=== PATIENT | male | born 1940 | race African-American/Black ===

== ENCOUNTER 2017-07-10 18:05 | Emergency (ER) | payer SELFPAY ==
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
--- NOTE | 2017-07-10 21:01 | CT ---
Head CT Technique: Multiple axial sections through the brain were obtained. Intravenous contrast was not utilized. Comparison: No previous intracranial imaging. Findings: Ventricles along with basal cisterns and sulci over the convexities are within normal limits for the patient's age. Minimal basal ganglia calcification is seen. Atherosclerotic calcification is noted within the carotid siphon. No abnormal parenchymal densities are seen. No evidence of intracranial hemorrhage. No midline shift or mass effect is seen. Visualized sinuses are clear. No acute calvarial abnormality is seen. Impression: 1. Mild senescent change. Nothing acute is seen on noncontrast head CT study. Diagnostic code #2
--- NOTE | 2017-07-11 07:39 | CR ---
Chest: Two views of the chest were obtained. Comparison: No prior chest x-ray. Heart is slightly enlarged. Tortuous thoracic aorta or possibly aneurysmal aorta is noted. Mild increased lung markings are seen. Lungs otherwise are clear. Minimal degenerative spurring and minimal scoliosis is noted within the spine. Impression: 1. Slight increased lung markings. This is most likely chronic. 2. Other findings as noted above. Nothing acute is seen. Diagnostic code #2
== END 2017-07-10 21:32 | disposition home or self-care (01) ==
LOC: JD.ED 18:05
DX: S00.03XA Contusion of scalp, initial encounter (principal); M25.561 Pain in right knee; M25.562 Pain in left knee; Y04.8XXA Assault by other bodily force, initial encounter
CPT/HCPCS: 70450; 70450-26; 71046; 71046-26; 99283; 99285-25

== ENCOUNTER 2017-07-29 16:04 | Emergency (ER) | payer SELFPAY ==
[2017-07-29] MEDS ORDERED: amLODIPine 10 MG Tab PO STA (16:50)
[2017-07-29] MEDS ORDERED: Amoxicillin 500 MG Cap PO ONE (16:50)
--- NOTE | 2017-07-29 16:58 | EDM.PDOC ---
ED HPI GENERAL MEDICAL PROBLEM - General Chief Complaint: General Stated Complaint: TOOTHACHE Time Seen by Provider: 07/29/17 16:45 Source of Information: Reports: Patient, Other (friend who was called by nursing as width stripper service is not available) History Limitations: Reports: Language Barrier - History of Present Illness INITIAL COMMENTS - FREE TEXT/NARRATIVE: Dashawn is a 77yo male patient presents ambulatory with complaints of tooth ache to upper right molar. He points to his tooth and shows me where he is having pain. There is a language barrier, unfortunately width stripper is not available at this time. Nursing does gather some information from a friend who states he has had a tooth ache for many days; no other medical history, medications daily or allergies that friend is aware of. Treatments CUSTOMER ENGINEERING SPECIALIST: Reports: Other (see below) Other Treatments CUSTOMER ENGINEERING SPECIALIST: unknown - Related Data Allergies Allergy/AdvReac Type Severity Reaction Status Date / Time No Known Allergies Allergy Verified 07/29/17 16:22 Home Meds: Home Meds . [No Known Home Meds] 07/29/17 [History] Past Medical History - Past Health History Medical/Surgical History: Denies Medical/Surgical History Social & Family History - Family History Family Medical History: Noncontributory - Tobacco Use Smoking Status *Q: Unknown Ever Smoked - Caffeine Use Caffeine Use: Reports: None - Recreational Drug Use Recreational Drug Use: No ED ROS GENERAL - Review of Systems Review Of Systems: See Below Free Text/Narrative/Comment: Difficult to obtain as strong language barrier. In general he is having dental pain to rt upper molar. He also points to his head, I am questioning wether he has a headache but he is unable to understand. ED EXAM, GENERAL - Physical Exam Exam: See Below Exam Limited By: Language Barrier General Appearance: Alert, WD/WN, No Apparent Distress Eye Exam: Bilateral Eye: Conjunctival Injection, EOMI, PERRL Ears: Normal External Exam, Hearing Grossly Normal Nose: Normal Inspection Throat/Mouth: Normal Oropharynx, No Airway Compromise, Other (all teeth are in poor repair. Right upper molar is with severe gingival edema, root to lateral side is exposed. ) Head: Atraumatic, Normocephalic Neck: Normal Inspection Respiratory/Chest: No Respiratory Distress, Lungs Clear, Normal Breath Sounds Cardiovascular: Regular Rate, Rhythm, No Edema, No Murmur (Male) Exam: Deferred Rectal (Males) Exam: Deferred Extremities: Normal Inspection, No Pedal Edema Neurological: Alert, Oriented Skin Exam: Warm, Dry, Intact Course - Vital Signs Last Recorded V/S: Last Vital Signs Temp 98.0 F 07/29/17 16:22 Pulse 84 07/29/17 16:22 Resp 18 07/29/17 16:22 BP 180/129 H 07/29/17 16:56 Pulse Ox 97 07/29/17 16:22 - Orders/Labs/Meds Orders: Active Orders 24 hr Category Date Time Status Communication Order [RC] ROUTINE Care 07/29/17 16:52 Active Meds: Medications Discontinued Medications Generic Name Dose Route Start Last Admin Trade Name Ulysses PRN Reason Stop Dose Admin Amlodipine Besylate 10 mg 07/29/17 16:50 07/29/17 16:56 Norvasc PO 07/29/17 16:51 10 mg NOW STA Administration Amoxicillin 1,000 mg 07/29/17 16:50 07/29/17 16:54 Amoxil PO 07/29/17 16:51 1,000 mg ONETIME ONE Administration Ketorolac Tromethamine 30 mg 07/29/17 18:24 07/29/17 18:30 Toradol IM 07/29/17 18:25 30 mg ONETIME ONE Administration - Re-Assessments/Exams Free Text/Narrative Re-Assessment/Exam: 07/29/17 16:58 B/P is elevated; patient is unable to describe or tell me if this has been a problem for him before. Some of this elevation may be due to pain also. Amlodipine 10mg given PO. Amoxicillin 1,000mg PO given. Free Text/Narrative Re-Assessment/Exam: 07/29/17 18:25 b/p still elevated; will give pain medication and see if this improves. Departure - Departure Time of Disposition: 18:53 Disposition: Home, Self-Care 01 Condition: Good Clinical Impression: Elevated blood pressure reading, Pain due to dental caries - Discharge Information Instructions: Dental Abscess, Hypertension, [id number], Preventing Hypertension Referrals: Nuris Blunt OCEANOGRAPHY PROFESSOR [Primary Care Provider] - Forms: ED Department Discharge Additional Instructions: Rinse mouth with salt water 3 times daily Take antibiotic as instructed. See a dentist as soon as possible for further evaluation Check blood pressure once daily Low salt diet, push fluids- water is best Take blood pressure mediation once daily with lots of water. Follow up with Primary Care early next week for recheck of your blood pressure and to establish care-- this is essential. - My Orders Last 24 Hours: My Active Orders 07/29/17 16:52 Communication Order [RC] ROUTINE - Assessment/Plan Last 24 Hours: My Active Orders 07/29/17 16:52 Communication Order [RC] ROUTINE
[2017-07-29] MEDS ORDERED: Ketorolac 30 MG/ML SDV IM ONE (18:24)
== END 2017-07-29 19:00 | disposition home or self-care (01) ==
LOC: SUPCPDRO 16:04 → JD.ED 16:04
DX: K02.9 Dental caries, unspecified (principal); R03.0 Elevated blood-pressure reading, without diagnosis of hypertension
CPT/HCPCS: 96372; 99283; A9270; J1885

== ENCOUNTER 2018-04-05 11:45 | Emergency (ER) | payer MEDICARE ==
[2018-04-05] MEDS ORDERED: HYDROmorphone 1 MG/ML Syringe IVPUSH ONE (12:19)
[2018-04-05] MEDS ORDERED: Sodium Chloride 0.9% 10 ML Syringe FLUSH PRN (12:19)
[2018-04-05] MEDS ORDERED: Ondansetron 4 MG/2 ML SDV IVPUSH ONE (12:19)
--- NOTE | 2018-04-05 12:27 | EDM.PDOC ---
ED HPI GENERAL MEDICAL PROBLEM - General Chief Complaint: Abdominal Pain Stated Complaint: BACK PAIN Time Seen by Provider: 04/05/18 12:05 Source of Information: Reports: Patient, RN Notes Reviewed - History of Present Illness INITIAL COMMENTS - FREE TEXT/NARRATIVE: 78 year old male with abd pain that started about 2 days ago, became more severe last evening with onset of vomiting about 12 hours ago. Continued nausea , not actively vomiting on arrival to ED. No chest pain or difficulty breathing at this time. Hx Htn. The pain at times does radiate to his back. Most intense upper mid abd. Canadian is not fluent, difficult to get more details at time of initial eval. Abdomen Pain Score (Numeric/FACES): 7 - Related Data Allergies Allergy/AdvReac Type Severity Reaction Status Date / Time Iodinated Contrast- Oral and Allergy Rash Verified 04/05/18 14:39 IV Dye Home Meds: Home Meds Aspirin 81 mg PO BEDTIME #30 tab.chew 10/28/17 [Rx] Furosemide [Lasix] 40 mg PO ASDIRECTED #30 tablet 10/28/17 [Rx] Lisinopril [Prinivil] 20 mg PO DAILY #30 tablet 10/28/17 [Rx] Metoprolol Tartrate [Lopressor] 25 mg PO Q12H #30 tablet 10/28/17 [Rx] Spironolactone [Aldactone] 25 mg PO DAILY #30 tablet 10/28/17 [Rx] atorvaSTATin [Lipitor] 40 mg PO BEDTIME #30 tab 10/28/17 [Rx] Past Medical History - Past Health History Medical/Surgical History: Denies Medical/Surgical History HEENT History: Reports: Other (See Below) Other HEENT History: dental issues, teeth pulled. Cardiovascular History: Reports: Hypertension Musculoskeletal History: Reports: Arthritis, Osteoarthritis Social & Family History - Family History Family Medical History: Noncontributory - Tobacco Use Smoking Status *Q: Unknown Ever Smoked - Caffeine Use Caffeine Use: Reports: Coffee, Energy Drinks - Living Situation & Occupation Living situation: Reports: Occupation: Retired ED ROS GENERAL - Review of Systems Review Of Systems: See Below Constitutional: Denies: Fever HEENT: Denies: Throat Pain Respiratory: Denies: Shortness of Breath, Cough Cardiovascular: Denies: Chest Pain GI/Abdominal: Reports: Abdominal Pain, Decreased Appetite, Nausea, Vomiting. Denies: Diarrhea Musculoskeletal: Reports: Back Pain Neurological: Denies: Trouble Speaking, Difficulty Walking, Weakness ED EXAM, GI/ABD - Physical Exam Exam: See Below General Appearance: Alert, Mild Distress Eyes: Bilateral: Normal Appearance Throat/Mouth: Normal Inspection, Normal Oropharynx Head: Atraumatic Neck: Supple, Full Range of Motion Respiratory/Chest: No Respiratory Distress, Lungs Clear, Normal Breath Sounds Cardiovascular: Tachycardia GI/Abdominal Exam: Tender (mild to moderate tenderness upper mid abd, lower abd nontender) Back Exam: No: CVA Tenderness (L), CVA Tenderness (R) Neurological: Alert, No Motor/Sensory Deficits Skin Exam: Warm, Dry EKG INTERPRETATION EKG Date: 04/05/18 Rhythm: NSR [place]: Normal P-Wave: Present QRS: Normal ST-T: Other (borderline st elevation lateral leads) Course - Vital Signs Last Recorded V/S: Last Vital Signs Temp 97.5 F 04/05/18 12:03 Pulse 110 H 04/05/18 12:03 Resp 18 04/05/18 12:03 BP 124/94 H 04/05/18 12:03 Pulse Ox 94 L 04/05/18 12:03 - Orders/Labs/Meds Orders: Active Orders 24 hr Category Date Time Status EKG 12 Lead [EKG Documentation Completion] [RC] STAT Care 04/05/18 14:11 Active Peripheral IV Care [RC] . DIRECTED Care 04/05/18 12:21 Active Peripheral IV Insertion Adult [OM.PC] Stat Oth 04/05/18 12:19 Ordered Labs: Laboratory Tests 04/05/18 04/05/18 04/05/18 Range/Units 12:25 12:25 14:20 WBC 6.35 (4.23-9.07) K/mm3 RBC 6.88 H (4.63-6.08) M/mm3 Hgb 14.9 (13.7-17.5) gm/L Hct 44.8 (40.1-51.0) % MCV 65.1 L (79.0-92.2) fl MCH 21.7 L (25.7-32.2) pg MCHC 33.3 (32.2-35.5) g/dl RDW Std Deviation 37.8 (35.1-43.9) fL Plt Count 153 L (163-337) K/mm3 MPV TNP Neut % (Auto) 41.2 (34.0-67.9) % Lymph % (Auto) 34.2 (21.8-53.1) % [place] % (Auto) 19.4 H (5.3-12.2) % Eos % (Auto) 5.0 (0.8-7.0) Baso % (Auto) 0.2 (0.1-1.2) % Neut # (Auto) 2.62 (1.78-5.38) K/mm3 Lymph # (Auto) 2.17 (1.32-3.57) K/mm3 [place] # (Auto) 1.23 H (0.30-0.82) K/mm3 Eos # (Auto) 0.32 (0.04-0.54) K/mm3 Baso # (Auto) 0.01 (0.01-0.08) K/mm3 Manual Slide Review Abnormal smear Sodium 139 (136-145) mEq/L Potassium 4.6 (3.5-5.1) mEq/L Chloride 104 (98-107) mEq/L Carbon Dioxide 25 (21-32) mEq/L Anion Gap 14.6 (5-15) BUN 37 H (7-18) mg/dL Creatinine 1.2 (0.7-1.3) mg/dL Est Cr Clr Drug Dosing 49.61 mL/min Estimated GFR (MDRD) > 60 (>60) mL/min BUN/Creatinine Ratio 30.8 H (14-18) Glucose 104 (83-115) mg/dL Calcium 9.6 (8.5-10.1) mg/dL Total Bilirubin 0.4 (0.2-1.0) mg/dL AST 19 (15-37) U/L ALT 23 (16-63) U/L Alkaline Phosphatase 80 (46-116) U/L Troponin I < 0.017 (0.00-0.056) ng/mL Total Protein 8.0 (6.4-8.2) g/dl Albumin 3.4 (3.4-5.0) g/dl Globulin 4.6 gm/dL Albumin/Globulin Ratio 0.7 L (1-2) Lipase 135 (73-393) U/L Meds: Medications Discontinued Medications Generic Name Dose Route Start Last Admin Trade Name Freq PRN Reason Stop Dose Admin Diphenhydramine HCl 50 mg 04/05/18 14:36 04/05/18 14:45 Benadryl PO 04/05/18 14:37 50 mg ONETIME ONE Administration Hydromorphone HCl 1 mg 04/05/18 12:19 04/05/18 12:34 Dilaudid IVPUSH 04/05/18 12:20 1 mg ONETIME ONE Administration Sodium Chloride 1,000 mls @ 999 mls/hr 04/05/18 12:30 04/05/18 12:34 Normal Saline IV 999 mls/hr ONETIME PRABHAKAR Administration Sodium Chloride 100 mls @ 60 mls/hr 04/05/18 14:30 04/05/18 15:29 Normal Saline IV 60 mls/hr ASDIRECTED PRABHAKAR Administration Sodium Chloride 500 mls @ 999 mls/hr 04/05/18 14:36 04/05/18 14:45 Normal Saline IV 04/05/18 15:06 999 mls/hr .BOLUS ONE Administration Iopamidol 100 ml 04/05/18 14:18 04/05/18 15:27 Isovue-370 (76%) IVPUSH 04/05/18 14:19 100 ml ONETIME ONE Administration Methylprednisolone Sodium Succinate 125 mg 04/05/18 14:36 04/05/18 14:45 Solu-Medrol IVPUSH 04/05/18 14:37 125 mg ONETIME ONE Administration Ondansetron HCl 4 mg 04/05/18 12:19 04/05/18 12:34 Zofran IVPUSH 04/05/18 12:20 4 mg ONETIME ONE Administration Sodium Chloride 10 ml 04/05/18 12:19 04/05/18 12:38 Saline Flush FLUSH 10 ml ASDIRECTED PRN Administration Keep Vein Open Sodium Chloride 10 ml 04/05/18 14:18 04/05/18 15:29 Saline Flush FLUSH 04/05/18 14:19 10 ml ONETIME ONE Administration - Re-Assessments/Exams Free Text/Narrative Re-Assessment/Exam: 04/05/18 14:53. I was going to discharge patient a short while ago. He was feeling better. He had me talk to his son who informed me the patient has been having lower chest pain as well as the upper abd pain. Have ordered EKG which does not show acute changes but have also ordered Chest, abd angiogram with hx noted on problem list of thoracic aneurysm. awaiting results of that. 04/05/18 15:57. troponin has come back normal, CT shows aneurysm, unchanged, no acute abnormality, see Radiologist report for details. I have discussed this and other results with one of his son's per phone and with patient Departure - Departure Time of Disposition: 16:05 Disposition: Home, Self-Care 01 Preliminary Cause of *Q: Sepsis & Multi System Organ Failure Condition: Fair Clinical Impression: Atypical chest pain Abdominal pain Qualifiers: Abdominal location: epigastric Qualified Code(s): R10.13 - Epigastric pain - Discharge Information Instructions: Nonspecific Chest Pain, [id number] Referrals: PCP,None [Ordering Only Provider] - Forms: ED Department Discharge Additional Instructions: clear liquids until tomorrow, than careful bland diet as tolerated. tylenol if needed for any further pain. Continue current medications. Follow up clinic with your regular medical provider early next week, call for appointment. Return to ED if symptoms worsening in any way. - My Orders Last 24 Hours: My Active Orders 04/05/18 12:19 Peripheral IV Insertion Adult [OM.PC] Stat 04/05/18 12:21 Peripheral IV Care [RC] . DIRECTED 04/05/18 14:11 EKG 12 Lead [EKG Documentation Completion] [RC] STAT - Assessment/Plan Last 24 Hours: My Active Orders 04/05/18 12:19 Peripheral IV Insertion Adult [OM.PC] Stat 04/05/18 12:21 Peripheral IV Care [RC] . DIRECTED 04/05/18 14:11 EKG 12 Lead [EKG Documentation Completion] [RC] STAT
[2018-04-05] MEDS ORDERED: Sodium Chloride 0.9% 1,000 ML IV SCH (12:30)
--- NOTE | 2018-04-05 13:26 | CR ---
Abdomen: Supine and upright views of the abdomen were obtained. Comparison: No prior abdominal x-ray, previous CT abdomen of 10/25/17. Findings: Bowel gas pattern appears within normal limits. No free air is seen. Bony structures are within normal limits for the patient's age. No abnormal calcifications or discrete soft tissue abnormality is seen. Impression: 1. Nothing acute is seen on two-view abdominal x-ray. Diagnostic code #1
[2018-04-05] MEDS ORDERED: Sodium Chloride 0.9% 10 ML Syringe FLUSH ONE (14:18)
[2018-04-05] MEDS ORDERED: Iopamidol 755 Mg/ML 100 ML Bottle IVPUSH ONE (14:18)
[2018-04-05] MEDS ORDERED: Sodium Chloride 0.9% 100 ML IV SCH (14:30)
[2018-04-05] MEDS ORDERED: methylPREDNISolone Sodium Succinate 125 MG/2 ML SDV IVPUSH ONE (14:36)
[2018-04-05] MEDS ORDERED: Sodium Chloride 0.9% 500 ML IV ONE (14:36)
[2018-04-05] MEDS ORDERED: diphenhydrAMINE 50 MG Cap PO ONE (14:36)
--- NOTE | 2018-04-05 15:57 | CT ---
CT chest Technique: Multiple axial sections were obtained from above the lung apices inferiorly through the lung bases. Intravenous contrast was utilized. Comparison: Previous CT chest of 10/25/17. Findings: Ascending aorta measures approximately 4.4 cm in AP dimension which is stable from previous exam. Soft tissue thickening is seen of the ascending aorta wall which has slightly diminished in size from previous exam. No dissection is seen. No other aneurysm is noted. Heart is slightly enlarged. Mediastinum and hilar regions show no adenopathy or mass. Lung markings are slightly increased which appear stable from previous exam. Small nodule is noted within the right lung base which is stable. Additional nodule is noted within the right upper lung which is stable. No acute parenchymal change is appreciated. Bone window settings were reviewed which show no acute osseous abnormality. Slight degenerative change is noted within the spine. Impression: 1. Stable aneurysmal dilatation of the ascending aorta. 2. Mild cardiomegaly. 3. Other findings as noted above are stable. Nothing acute is appreciated. CT abdomen and pelvis Technique: Multiple axial sections were obtained from above the dome of the diaphragm inferiorly through the pubic symphysis. Intravenous contrast was utilized. No oral contrast has been given. Comparison: Previous CT abdomen and pelvis exam of 10/25/17. Findings: Liver contains no focal abnormality. Gallbladder contains no calcified gallstones. Spleen appears within normal limits. Adrenal glands show no nodule. Areas of scarring are seen within the left kidney. Kidneys show symmetric contrast enhancement. Very minimal cortical lesion is seen within the upper left kidney most likely due to minimal cyst. Slight increased density is noted within the proximal to mid left ureter believed to represent a a very small wall calcification or less likely nonobstructing stone. No significant proximal ureteral dilatation is seen. This finding is felt to be stable from previous exam. Ureters are otherwise unremarkable. Aorta shows no aneurysm. No dissection is seen. Proximal celiac arteries and superior mesenteric arteries are patent. Renal arteries are patent. Inferior mesenteric artery appears to be patent. No retroperitoneal adenopathy or mesenteric abnormalities are seen. No pelvic mass or adenopathy is seen. No bowel dilatation is seen. Appendix is seen and is normal in size. Bone window settings were reviewed which show mild degenerative change within the spine. Most prominent finding is vacuum phenomenon within the L4-L5 disc with epidural air indicating annular rupture of the L4-L5 disc. Impression: 1. Incidental findings as noted above. Nothing acute is appreciated. Diagnostic code #2
== END 2018-04-05 16:27 | disposition home or self-care (01) ==
LOC: JD.ED 11:45
DX: R07.89 Other chest pain (principal); R10.13 Epigastric pain; I10 Essential (primary) hypertension; Z91.041 Radiographic dye allergy status; Z79.899 Other long term (current) drug therapy; Z79.82 Long term (current) use of aspirin
CPT/HCPCS: 36415; 71260; 74019; 74177; 80053; 83690; 84484; 85025; 93005; 96361; 96374; 96375; 99285; A9270; J1170; J2405; J2930; J7030; J7040; Q9967; 93010; 99284